=== PATIENT | female | born 1985 | race Caucasian/White ===

== ENCOUNTER → 2016-04-14 | Outpatient (CLI) | payer OTHER ==
[~2016-04-14] MED LIST: PRENTAB26 PO
[2016-04-14 11:06] LABS: HEMATOCRIT 28.5 % (37-47)
[2016-04-14 11:57] LABS: URINE APPEARANCE CLEAR (CLEAR); URINE BILIRUBIN NEG (NEG); URINE COLOR YELLOW; URINE EPITHELIAL CELL AUTO >30 /lpf (0-5); URINE NITRITE NEG (NEG); URINE PH 7.5 (4.5-7.5); URINE SPECIFIC GRAVITY 1.004 (1.000-1.030); UROBILINOGEN NEG (NEG)
[2016-04-14 12:00] LABS: MANUAL MICROSCOPIC REQUIRED? NO; REVIEW REQ? NO
== END | disposition home or self-care (01) ==
LOC: C.LAB1850 09:09
PROVIDERS: ATTEND Obstetrics & Gynecology
DX: O99.012 Anemia complicating pregnancy, second trimester (principal)

== ENCOUNTER → 2016-06-09 | Outpatient (CLI) | payer OTHER | END | disposition home or self-care (01) | LOC: C.LABSPEC 15:03 | PROVIDERS: ATTEND Obstetrics & Gynecology | DX: Z34.83 Encounter for supervision of other normal pregnancy, third trimester (principal) ==

== ENCOUNTER 2016-07-07 16:36 | Inpatient (IN) | payer OTHER ==
[~2016-07-07] VITALS: Ht 156.2 cm; Wt 72.3 kg
[2016-07-15] MEDS ORDERED: LACTATED RINGER'S 1000ML 500 ML IV PRN ×2 (08:10→18:00)
[2016-07-15] MEDS ORDERED: LACTATED RINGER'S 1000ML 1,000 ML IV SCH (08:10)
[2016-07-15] MEDS ORDERED: LACTATED RINGER'S 1000ML 1,000 ML IV PRN (08:10)
[2016-07-15] MEDS ORDERED: OXYTOCIN 30 UNITS/500ML NSS IV PRN ×2 (08:15→22:45)
[2016-07-15 08:20] VITALS: Ht 156.2 cm; Wt 72.3 kg
[2016-07-15] MEDS ORDERED: PENICILLIN G POTASSIUM IV 6 MU in DEXTROSE 5% 250ML 250 ML IV ONE (08:30)
[2016-07-15 09:02] LABS: HEMATOCRIT 32.2 % (37-47); MEAN CELL VOLUME 94.2 fL (80-100); MEAN CORPUSCULAR HEMOGLOBIN 31.6 pg (25-34); MEAN CORPUSCULAR HGB CONC 33.5 g/dl (32-36); PLATELET COUNT 260 K/uL (130-400); RED BLOOD COUNT 3.42 M/uL (4.2-5.4); WHITE BLOOD COUNT 9.76 K/uL (4.8-10.8)
[2016-07-15] MEDS ORDERED: PRENTAB26 PO (09:37)
[2016-07-15] MEDS: PENICILLIN G POTASSIUM IV 3 MU in DEXTROSE 5% 100ML 100 ML IV PRN ×3 (12:24→20:14)
[2016-07-15] MEDS ORDERED: FENTANYL CITRATE INJ 50 MCG/1 ML 2 ML VIAL ONE (17:07)
[2016-07-15] MEDS ORDERED: BUPIVACAINE 0.25% 30 ML VIAL ONE (17:07)
[2016-07-15] MEDS ORDERED: EpHEDrine SULFATE INJ 50 MG/ML AMP ONE (17:07)
[2016-07-15] MEDS ORDERED: FENTANYL 2MCG/ML ROPIV 1.25MG/ML 100ML BAG EPI ONE (17:07)
[2016-07-15] MEDS ORDERED: FENTANYL 2MCG/ML ROPIV 1.25MG/ML 100ML BAG EPI PRN (18:00)
[2016-07-15] MEDS ORDERED: EpHEDrine SULFATE INJ 50 MG/ML AMP IV PRN (18:00)
[2016-07-15] MEDS ORDERED: DiphenhydrAMINE HCL 50 MG/ML VIAL IV PRN (18:00)
[2016-07-15] MEDS ORDERED: NALOXONE HCL INJ 1 MG in SODIUM CHLORIDE 0.9% 1000ML 1,000 ML IV PRN (18:00)
[2016-07-15] MEDS ORDERED: NALOXONE HCL INJ 0.4 MG/1 ML VIAL/CARP IV PRN (18:00)
[2016-07-15] MEDS ORDERED: NALBUPHINE HCL INJ 10 MG/ML AMP IV PRN (18:00)
[2016-07-15] MEDS ORDERED: ONDANSETRON INJ 2 MG/ML 2 ML VIAL IV PRN (18:00)
[2016-07-15] MEDS ORDERED: DIPHTHERIA/TETANUS/PERTUSSIS 0.5 ML SYR/VIAL IM. ONE (22:45)
[2016-07-15] MEDS ORDERED: BENZOCAINE 20% AER SPR 82.5 GM CAN EXT PRN (22:45)
[2016-07-15] MEDS ORDERED: SUPERCREAM 0.870 % 15GM JAR EXT PRN (22:45)
[2016-07-15] MEDS ORDERED: ACETAMINOPHEN 325 MG TAB PO PRN (22:45)
[2016-07-15] MEDS ORDERED: HYDROCORTISONE ACETATE 25 MG SUPP PR PRN (22:45)
[2016-07-15] MEDS ORDERED: OXYCODONE/ACETAMINOPHEN 5-325 TAB PO PRN (22:45)
[2016-07-15] MEDS ORDERED: ACETAMINOPHEN/CODEINE 300/30MG TAB PO PRN ×2 (22:45)
[2016-07-15] MEDS ORDERED: LANOLIN OINT EXT PRN ×2 (22:45)
[2016-07-15] MEDS: IBUPROFEN 600 MG TAB PO PRN (23:02)
--- NOTE | 2016-07-15 23:09 | DELIVERY SUMMARY ---
DATE OF OPERATION: 07/15/2016 Tete was induced at 41 weeks. This was her second baby. Group B strep positive. Uncomplicated , otherwise. Initially, Pitocin was started, IV antibiotic started for group B strep protocol and then ARM performed for clear fluid. She progressed from 2-3 cm to 4 cm and then beyond this, requested epidural. heart rate tracing did have intermittent episodes of category 2, which went to category 1. She did reach fully dilated, then pushed for some time. She was able to bring the baby down to spines +2 cm station. It was left occiput anterior. She had significant labial swelling and the heart rate started to worsen, specifically, deeper variables after the contractions and tachycardia. With this information and with the significant labial swelling, I offered vacuum intervention. The patient agreed. I discussed the risks, benefits and alternatives. We drained the bladder, first by using Betadine to clear the area and minimal drops of urine were obtained. Position was obtained, +2 cm station, CECILIA. Vacuum was applied. Baby was delivered at total of 1 contraction. No pop-offs, no excessive force was used. A right medial lateral episiotomy was performed as well. Head was delivered and loose nuchal cord passed over, mouth and the nares suctioned, the baby was then delivered by gentle traction, no excessive force used. A live male infant, initially required assessment at the warmer, but soon afterwards, started crying. Cord gases obtained, cord blood obtained, placenta removed with gentle traction. The episiotomy was repaired with 3-0 Vicryl. Sponge and instrument counts were correct. Rectal exam was negative for defects or sutures. Estimated blood loss 300 mL. I attest to the content of the Intraoperative Record and any orders documented therein. Any exceptio ns are noted below.
--- NOTE | 2016-07-15 23:54 | Anesthesia Procedure Note ---
Anesthesia Epidural Removal Nt Date & Time July 15, 2016 at 23:53 Vital Signs Pain Intensity: 1.0 Notes Mental Status: alert / awake / arousable, participated in evaluation Nausea / Vomiting: adequately controlled Pain: adequately controlled Airway Patency, RR, SpO2: stable & adequate BP & HR: stable & adequate Hydration State: stable & adequate Neuraxial Anesthesia: was administered Anesthetic Complications: no major complications apparent, pt satisfied with anesthetic care Epidural: removed without complications, with tip intact
[2016-07-16 01:10] VITALS: BP 102/66; PULSE 102; TEMP 36.9; O2SAT 97
[2016-07-16 04:30] VITALS: BP_SYST 101; BP_SYST 102; BP_DIAS 66; BP_DIAS 68; PULSE 101; PULSE 102; TEMP 36.9; O2SAT 97; O2SAT 98
[2016-07-16 06:09] LABS: HEMATOCRIT 25.9 % (37-47)
--- NOTE | 2016-07-16 07:22 | Progress Note ---
Subjective Jul 16, 2016. Subjective conversation w/ patient, physical exam, lab review Ambulation: ambulating normally Voiding: no voiding problems Diet Tolerance: Regular Diet Lochia: Moderate Feeding Type: Breast Feeding Objective Vital Signs Date Time Temp Pulse Resp B/P (MAP) Pulse Ox O2 Delivery O2 Flow Rate FiO2 07/16/16 04:30 36.9 101 18 101/68 (79) 98 Room Air 07/16/16 01:10 36.9 102 18 102/66 (78) 97 Room Air 07/16/16 01:10 Room Air Physical Exam General Appearance: WELL-APPEARING Abdomen: non tender Fundus: Firm Extremities: no calf tenderness Laboratory Results Last 24 Hours Test 07/15/16 08:43 07/16/16 06:01 White Blood Count 9.76 K/uL Red Blood Count 3.42 M/uL Hemoglobin 10.8 g/dL 8.9 g/dL Hematocrit 32.2 % 25.9 % Mean Corpuscular Volume 94.2 fL Mean Corpuscular Hemoglobin 31.6 pg Mean Corpuscular Hemoglobin Concent 33.5 g/dl RDW Standard Deviation 46.7 fL RDW Coefficient of Variation 13.5 % Platelet Count 260 K/uL Mean Platelet Volume 10.0 fL Assessment and Plan Post- Day#: 1 Continue Routine Care: Hb 8.9 Some SP pain. Ambulate. SHABNAM
[2016-07-16 07:50] VITALS: BP 109/70; PULSE 92; TEMP 36.5; O2SAT 99
[2016-07-16] MEDS: DOCUSATE SODIUM 100 MG CAP PO SCH ×2 (07:51→20:00)
[2016-07-16] MEDS: PRENATAL VITAMIN TAB PO SCH (07:51)
[2016-07-16] MEDS: IBUPROFEN 600 MG TAB PO PRN ×4 (07:52→20:04)
--- NOTE | 2016-07-16 08:55 | Progress Note ---
Progress Note Date of Service Jul 16, 2016. Progress Note Nursing wanted me to look at the patient's bottom. On exam she has significant edema of the upper labia and mons. Does not appear to be hematoma, just edema. Do not plan on taking Griffin out today. will order scds. Reevaluate for griffin removal tomorrow.
[2016-07-16 11:45] VITALS: BP 99/64; PULSE 94; TEMP 36.7; O2SAT 98
[2016-07-16 15:30] VITALS: BP 100/64; PULSE 86; TEMP 36.8
[2016-07-16 20:00] VITALS: BP 108/68; PULSE 112; TEMP 36.9
[2016-07-16] MEDS ORDERED: BISACODYL 5 MG TABEC PO SCH (20:00)
[2016-07-17] VITALS: BP 97/60; PULSE 87; TEMP 36.7
[2016-07-17] MEDS: IBUPROFEN 600 MG TAB PO PRN ×3 (00:14→13:50)
[2016-07-17] MEDS ORDERED: BISACODYL 10 MG SUPP PR PRN (07:00)
--- NOTE | 2016-07-17 07:04 | Progress Note ---
Subjective Jul 17, 2016. Subjective conversation w/ patient, physical exam, lab review Ambulation: limited ambulation Voiding: no voiding problems Passing Gas: Yes Diet Tolerance: Regular Diet Lochia: Small Feeding Type: Breast Feeding Comment: Patient notes that she tried to ambulate in the room yesterday but had issues because she did not feel that her hips are stable and she has pain. Concerned about falling. Does not feel like she can ambulate without assist. Also concerned about her swelling. Objective Vital Signs Date Time Temp Pulse Resp B/P (MAP) Pulse Ox O2 Delivery O2 Flow Rate FiO2 07/17/16 00:00 Room Air 07/17/16 00:00 36.7 87 16 97/60 (72) 07/16/16 20:00 36.9 112 18 108/68 (81) 07/16/16 15:30 Room Air 07/16/16 15:30 36.8 86 20 100/64 (76) 07/16/16 11:45 36.7 94 18 99/64 (76) 98 Room Air 07/16/16 07:50 99 Room Air 07/16/16 07:50 36.5 92 18 109/70 (83) 99 Room Air Physical Exam General Appearance: WELL-APPEARING, WD/WN, NO APPARENT DISTRESS Abdomen: non tender, soft Fundus: Firm, Non-Tender, Relation to Umbilicus (at u) Extremities: non-tender, normal inspection, + pedal edema (trace) Assessment and Plan Post- Day#: 2 Continue Routine Care: Her labial swelling is still present but much less this am than exam yesterday. Plan on removing griffin and attempting urination. Will get walker to help her feel more stable. If she cannot void, will need to replace catheter and may need to consider d/c with it. Not ready for d/c.
[2016-07-17] MEDS: DOCUSATE SODIUM 100 MG CAP PO SCH (08:31)
[2016-07-17] MEDS: PRENATAL VITAMIN TAB PO SCH (08:31)
[2016-07-17 08:50] VITALS: BP 108/71; PULSE 84; TEMP 36.4; O2SAT 99
--- NOTE | 2016-07-17 13:34 | Discharge Instructions ---
Discharge Instructions Date of Service Jul 17, 2016. Admission Reason for Admission: Induction Discharge Discharge Diagnosis / Problem: recovery following delivery Discharge Goals Goal(s): Routine recovery after delivery Medications Continue Dispensed Medications: supercream, dermaplast, tucks, lansinoh Activity Recommendations Activity Limitations: per Instructions/Follow-up section . Instructions / Follow-Up Instructions / Follow-Up ACTIVITY RECOMMENDATIONS: * Gradual return to full activity over the next 2-3 weeks. * No lifting - nothing heavier than baby over the next 2-3 weeks. * Do not engage in vigorous exercise, sexual activity or sports until cleared by your physician. * Do not drive or operate any motorized equipment until cleared by your physician. * You may shower/bathe daily. MEDICATIONS: For discomfort or pain, you may use Acetaminophen (Tylenol), Ibuprofen (Advil), or Naproxen (Aleve) following the package directions. For constipation you may use Colace following the package directions. BREAST CARE: If you are not breast feeding: * Wear a supportive bra 24 hours a day for one to two weeks. * Avoid stimulating your breasts and nipples as much as possible during the first few weeks after delivery. * When taking a shower, have the warm water hit your back, not breasts. * When your breasts feel full, apply ice packs. Usually three to four times a day helps ease the discomfort. * Take a mild pain medication (Tylenol / Motrin) when you are uncomfortable. If breast feeding: * Use breast milk to lubricate nipples. Lansinoh cream may be used for sore nipples. You do not need to remove cream prior to breast feeding. If using a different brand of cream, check the label for directions regarding removal of cream prior to nursing. * Wear a supportive bra. * If having problems with breasts or breast feeding, call a coding consultant or your health care provider. EPISIOTOMY CARE: After delivery, if you have an episiotomy (stitches), the following steps will ease discomfort and aid healing. * For the first 24 hours after delivery, place ice packs next to your episiotomy to help reduce swelling. * After the first 24 hour-period, sitz baths, either portable or in the tub, are suggested. A shower with a shower arm sprayed over the episiotomy may be comforting. * Kath care should be done after each voiding and bowel movement. Squirt warm water from a plastic bottle over the perineum (region of the body between the anus and urinary opening) and pat dry. * Use Dermoplast to ease discomfort. Shake container. Orla directly over the episiotomy. Place a Tucks on a clean sanitary pad next to your episiotomy. SPECIAL CARE INSTRUCTIONS: When you are discharged from the hospital, it is important for you to follow the instructions listed below: * During the first week at home, you should be able to care for yourself and your baby. In addition, the usual light household activities are encouraged. * Limit your activities to the way you feel. Do not try to clean the house or move furniture. Be sensible. * If you actively engage in sports and have done so up until the time of your delivery, you may resume these activities as soon as you feel able. This may take up to one month or even longer. Use good judgment. * Continue to take your vitamins for at least six weeks after the of your baby. * Your diet need not be limited unless you were on a special diet before your delivery. Breast-feeding mothers need around 2500 calories per day and at least 64-80 ounces of fluid per day (8 to 10 glasses). * You should eat foods from the four major food groups. Crash diets or fad diets are to be avoided. Eating lean meats, fresh fruits and vegetables, low-fat dairy products, high fiber foods and a regular exercise program, will help you get back to your pre- weight without putting your health at risk. * Constipation is sometimes a problem after delivery. Take a mild laxative as needed. If breast feeding, Milk of Magnesia is acceptable to use. You may use a suppository or Fleets enema if no episiotomy. * A daily shower or tub bath is suggested. Be sure to thoroughly and gently dry the perineum. * A bloody vaginal discharge will usually continue until around four weeks post . A small amount of bleeding may continue for as long as six weeks. Vaginal discharge changes from the bright red bleeding after delivery to pink then brownish and finally yellowish-pink before becoming white and disappearing. * Bleeding may increase with activity. Your first period may come in 4-8 weeks. If you are breast feeding, your period may be delayed even longer. * [place] (sex) can begin whenever both you and your partner feel comfortable and do not have any form of genital infection. It is recommended that you wait at least six weeks for internal and external healing to occur. If you have questions, please talk to your health care practitioner. A condom should be used to prevent infection and . * Foreplay, gentle intercourse and lubrication is very important the first several times to prevent pain. A water-based lubricant such as K-Y jelly or Astroglide may be used. * If you have RH negative blood and your baby is RH positive, you will receive RHOGAM by injection prior to discharge. The nurse will give you a card to keep with you that has the date and place that you received RHOGAM after delivery. * During your care, you had a Rubella screen done to check for the presence of rubella antibodies in your blood. If your test was negative, you will receive a Rubella vaccine prior to discharge. This vaccine may cause a fever, soreness at the injection site and flu-like symptoms. If these symptoms persist, notify your health care practitioner. is not advised for one month after a Rubella vaccine. * Verbalizes understanding of car seat law as reviewed with patient nursing. * Car Seat hand-out given and reviewed with patient by nursing. * Shaken baby information reviewed with patient by nursing. Call you doctor if: * Heavy bleeding (saturating several pads an hour) or passing clots the size of your fist. * A fever >101 degrees F (38.3 degrees C) on two occasions four hours apart and /or chills. * Unusual pain in the pelvic or vaginal areas. * "Baby Blues" lasting longer than two weeks. If you have any questions or concerns, call your health care practitioner at . FOLLOW UP VISIT: * Please call the office at to schedule a 6 week examination. It is important you keep this appointment. It is important for you to make arrangements for either yearly or twice yearly check-ups thereafter. Current Hospital Diet Patient's current hospital diet: Regular OB Diet, Vegetarian Diet Discharge Diet Recommended Diet: Regular OB Diet Pending Studies Studies pending at discharge: no Medical Emergencies . Who to Call and When: Medical Emergencies: If at any time you feel your situation is an emergency, please call 911 immediately. . Non-Emergent Contact Non-Emergency issues call your: Post Form Remover . . "Provider Documentation" section prepared by Nanette Haley. . VTE Core Measure Inpt VTE Proph given/why not?: Treatment not indicated
[2016-07-17 15:40] VITALS: BP 115/74; PULSE 83; TEMP 37.1; O2SAT 97
[2016-07-17 18:07] VITALS: BP_DIAS 74; PULSE 83; TEMP 37.1
== END 2016-07-17 18:08 | disposition home or self-care (01) | DRG 774 ==
LOC: C.LD 07-15 07:40 → C.OBG 07-16 01:23
PROVIDERS: ADMIT Obstetrics & Gynecology; ATTEND Obstetrics & Gynecology
PROC: 3E033VJ Introduction of Other Hormone into Peripheral Vein, Percutaneous Approach (ICD-10-PCS; principal; 2016-07-15)
PROC: 10D07Z6 Extraction of Products of Conception, Vacuum, Via Natural or Artificial Opening (ICD-10-PCS; principal; 2016-07-15)
PROC: 0W8NXZZ Division of Female Perineum, External Approach (ICD-10-PCS; principal; 2016-07-15)
DX: O48.0 Post-term pregnancy (principal); O12.05 Gestational edema, complicating the puerperium; O76 Abnormality in fetal heart rate and rhythm complicating labor and delivery; O69.81X0 Labor and delivery complicated by cord around neck, without compression, not applicable or unspecified; O99.824 Streptococcus B carrier state complicating childbirth; O12.04 Gestational edema, complicating childbirth; Z37.0 Single live birth; Z3A.41 41 weeks gestation of pregnancy